=== PATIENT | female | born 1995 | race Caucasian/White ===

== ENCOUNTER 2019-05-31 15:10 | Emergency (ER) | payer MEDICAID ==
[~2019-05-31] VITALS: Ht 162.6 cm; Wt 81.8 kg
[~2019-05-31 15:10] MED LIST: OMNICEF 300MG300 MG PO; XANAX .25M0.25 MG/TA
[2019-05-31 15:52] LABS: COLLECTION METHOD CLEAN CATCH
[2019-05-31 16:00] LABS: MUCOUS Present /lpf; PH 5 (5-8); URINE APPEARANCE Cloudy; URINE BACTERIA Moderate /hpf; URINE BILIRUBIN Negative (NEGATIVE); URINE BLOOD 2+ (NEGATIVE); URINE CALCIUM OXALATE CRYSTAL Present /hpf; URINE COLOR Yellow; URINE GLUCOSE Negative (NEGATIVE); URINE KETONE Negative (NEGATIVE); URINE LEUKOCYTE ESTERASE Trace (NEGATIVE); URINE NITRATE Negative (NEGATIVE); URINE PROTEIN(semi-quant) Negative (NEGATIVE); URINE RBC 20-50 /hpf; URINE UROBILINOGEN Negative (NEGATIVE)
[2019-05-31 16:06] LABS: TRICYCLIC ANTIDEPRESS URINE NEGATIVE
[2019-05-31 16:49] LABS: BASO # 0.1 (0.0-0.2); BASO % 0.5 % (0.0-2.0); EOS # 0.2 (0.0-0.7); EOS % 1.5 % (0-4.0); GRAN % 70.8 % (42.2-75.2); HEMATOCRIT 41.2 % (37.0-47.0); HEMOGLOBIN 14.1 g/dl (12.5-16.0); LYMPH # 1.9 (1.2-3.4); MEAN CELL VOLUME 86 fl (80.0-100.0); MEAN CORPUSCULAR HEMOGLOBIN 30 pg (27.0-31.0); MEAN CORPUSCULAR HGB CONC 34 g/dl (33.0-37.0); MEAN PLATELET VOLUME 10.9 fl (7.4-10.4); MONO # 0.8 (0.1-0.6); MONO % 7.7 % (1.7-9.3); PLATELET COUNT 253 K/mm3 (130-400); RED BLOOD COUNT 4.78 M/mm3 (4.10-5.30); REDCELL DISTRIBUTION WIDTH-CV 13.1 % (11.5-14.5)
[2019-05-31 16:59] LABS: ALANINE AMINOTRANSFERASE 10 U/L (9-52); ALBUMIN 4.4 gm/dL (3.5-5.0); ALKALINE PHOSPHATASE 60 U/L (50-136); ANION GAP 10 mmol/L (7-16); AST,SGOT 16 U/L (15-37); BILIRUBIN,TOTAL 0.2 mg/dL (0.0-1.0); BLOOD UREA NITROGEN 3 mg/dL (7-17); CALCIUM 9.5 mg/dL (8.4-10.2); CARBON DIOXIDE 24 mmol/L (22-30); CHLORIDE 104 mmol/L (98-107); CREATININE, serum 0.49 (0.52-1.25); GLUCOSE 79 mg/dL (74-106); POTASSIUM 3.6 mmol/L (3.4-5.0); SODIUM 138 mmol/L (137-145); TOTAL PROTEIN 7.2 gm/dL (6.4-8.2)
[2019-05-31 17:00] LABS: ACETAMINOPHEN < 10 ug/mL (10-30); ALCOHOL(ethanol),MEDICAL < 10 mg/dL; SALICYLATE < 1.0 mg/dL
[2019-05-31 17:58] LABS: COLLECTION METHOD CLEAN CATCH
[2019-05-31 18:06] LABS: MUCOUS Present /lpf; PH 6 (5-8); URINE APPEARANCE Clear; URINE BACTERIA None Seen /hpf; URINE BILIRUBIN Negative (NEGATIVE); URINE BLOOD 1+ (NEGATIVE); URINE COLOR Yellow; URINE GLUCOSE Negative (NEGATIVE); URINE KETONE Negative (NEGATIVE); URINE LEUKOCYTE ESTERASE Negative (NEGATIVE); URINE NITRATE Negative (NEGATIVE); URINE PROTEIN(semi-quant) Negative (NEGATIVE); URINE RBC 0-2 /hpf; URINE UROBILINOGEN Negative (NEGATIVE)
[2019-05-31 18:12] LABS: HCG,QUANTITATIVE 74781 mIU/mL (0-5)
[2019-06-01 09:45] VITALS: BP 129/86; PULSE 94; TEMP 98.2
== END 2019-06-01 10:00 ==
LOC: COL.ER 15:10
PROVIDERS: Emergency Medicine
DX: O99.341 Other mental disorders complicating pregnancy, first trimester (principal); F32.9 Major depressive disorder, single episode, unspecified; R45.851 Suicidal ideations; O99.331 Smoking (tobacco) complicating pregnancy, first trimester; Z3A.01 Less than 8 weeks gestation of pregnancy